=== PATIENT | female | born 1955 | race Caucasian/White ===

== ENCOUNTER 2017-01-28 12:16 | Observation (INO) | payer MEDICAID, OTHER ==
[2017-01-28 12:16] VITALS: BMI 37.5
[~2017-01-28 12:16] MED LIST: Pneumococcal 23-Valent Vaccine IM ONE
[2017-01-28] MEDS ORDERED: Sodium Chloride 0.9% 500 ML IV STA (13:10)
[2017-01-28 13:53] LABS: BASO % 0.6 % (0.0-2.0); EOS # 0.1 K/uL (0.0-0.7); EOS % 0.9 % (0.0-4.0); HEMOGLOBIN 10.8 g/dL (12.0-16.0); LYMPH # 1.8 K/uL (1.0-4.3); LYMPH % 28.8 % (20.0-40.0); MEAN CELL VOLUME 89.6 fl (81.0-99.0); MEAN CORPUSCULAR HEMOGLOBIN 29.6 pg (27.0-31.0); MEAN PLATELET VOLUME 8.8 fl (7.2-11.7); MONO # 0.4 K/uL (0.0-0.8); NEUT # 3.9 K/uL (1.8-7.0); NEUT % 63.7 % (50.0-75.0); RBC 3.64 Mil/uL (3.80-5.20); RED CELL DISTRIBUTION WIDTH 13.5 % (11.5-14.5); WHITE BLOOD COUNT 6.2 K/uL (4.8-10.8)
--- NOTE | 2017-01-28 14:19 | CT ---
PROCEDURE: CT HEAD WITHOUT CONTRAST. HISTORY: headache COMPARISON: None available. TECHNIQUE: Axial computed tomography images were obtained through the head/brain without intravenous contrast. Radiation dose: Total exam DLP = 1122.24 mGy-cm. This CT exam was performed using one or more of the following dose reduction techniques: Automated exposure control, adjustment of the mA and/or kV according to patient size, and/or use of iterative reconstruction technique. FINDINGS: HEMORRHAGE: No intracranial hemorrhage. BRAIN: No mass effect or edema. No atrophy or chronic microvascular ischemic changes. VENTRICLES: Unremarkable. No hydrocephalus. CALVARIUM: Unremarkable. PARANASAL SINUSES: Unremarkable as visualized. No significant inflammatory changes. MASTOID AIR CELLS: Unremarkable as visualized. No inflammatory changes. OTHER FINDINGS: None. IMPRESSION: Normal CT of the Head. No intracranial mass, hemorrhage or evidence of acute infarct.
[2017-01-28 14:26] LABS: ALB/GLOB RATIO 1.3 (1.0-2.1); ALT/SGPT 26 U/L (9-52); AST/SGOT 17 U/L (14-36); BLOOD UREA NITROGEN 9 mg/dl (7-17); CALCIUM 9.1 mg/dL (8.4-10.2); GFR AFRICAN-AMERICAN > 60; GFR NON-AFRICAN AMERICAN > 60
--- NOTE | 2017-01-28 14:52 | RAD ---
HISTORY: pain COMPARISON: 05/02/2015 TECHNIQUE: Chest PA and lateral FINDINGS: LUNGS: No active pulmonary disease. PLEURA: No significant pleural effusion identified. No pneumothorax apparent. CARDIOVASCULAR: No radiographic findings to suggest acute or significant cardiovascular disease. OSSEOUS STRUCTURES: No significant abnormalities. VISUALIZED UPPER ABDOMEN: Normal. OTHER FINDINGS: None. IMPRESSION: No active disease. No significant interval change compared to the prior examination(s).
--- NOTE | 2017-01-28 15:05 | CARD ---
APPROVED REPORT EKG Measurement Heart [id number] <Conclusion> Sinus bradycardia Otherwise normal ECG
--- NOTE | 2017-01-28 15:15 | ED PDOC ---
HPI: General Adult Time Seen by Provider: 01/28/17 12:51 Chief Complaint (Nursing): GI Problem Chief Complaint (Provider): Dizziness History Per: Patient History/Exam Limitations: no limitations Onset/Duration Of Symptoms: Days Additional Complaint(s): Complains of chest pain and dizziness like light-headed. Also has bubbling in her abd off and on. Dizziness ongoing for 1 week. Chest pain started today. No weakness, numbness, tingles, headaches, dyspnea, back pain. States her urine smells but no dysuria. Past Medical History Reviewed: Nursing Documentation, Vital Signs Vital Signs: Last Vital Signs Temp 98 F 01/28/17 12:24 Pulse 60 01/28/17 12:24 Resp 18 01/28/17 12:24 BP 150/94 H 01/28/17 12:24 Pulse Ox 98 01/28/17 12:24 - Medical History PMH: Anemia, Arthritis, Bipolar Disorder, COPD, Depression, Diabetes, HTN, Hypercholesterolemia, Migraine, Rheumatoid Arthritis, Schizophrenia (since 2003) , TIA Denies: Chronic Kidney Disease - Surgical History Surgical History: Denies: CABG - Family History Family History: States: Unknown Family Hx - Living Arrangements Living Arrangements: With Family - Social History Current smoker - smoking cessation education provided: No Alcohol: None Drugs: Denies - Home Medications Home Medications: Ambulatory Orders Medication Instructions Recorded Sertraline [Zoloft] 100 mg PO DAILY 12/17/13 Lisinopril [Zestril] 5 mg PO DAILY #14 tab 09/22/14 Aspirin [Ecotrin] 81 mg PO DAILY #30 tabec 05/09/15 Atorvastatin [Lipitor] 20 mg PO DAILY #30 tab 05/09/15 Benztropine [Cogentin] 2 mg PO BID #60 tab 05/09/15 QUEtiapine [SEROquel] 600 mg PO HS #30 tab 05/09/15 clonazePAM [Klonopin] 0.5 mg PO BID #60 tab 05/09/15 metFORMIN [glucOPHAGE] 500 mg PO BIDWM #60 tab 05/09/15 Cephalexin [Keflex] 500 mg PO Q6 #27 capsule 12/15/16 Clotrimazole 1% Cream [Lotrimin 1%] 1 appl TP BID #1 tube 12/15/16 - Allergies Allergies/Adverse Reactions: Allergies Allergy/AdvReac Type Severity Reaction Status Date / Time ethinyl estradiol Allergy CONGESTION Verified 12/15/16 15:25 [From Seasonale contraceptive] levonorgestrel Allergy CONGESTION Verified 12/15/16 15:25 [From Seasonale contraceptive] Review of Systems ROS Statement: Except As Marked, All Systems Reviewed And Found Negative Cardiovascular: Positive for: Chest Pain Gastrointestinal: Positive for: Abdominal Pain Neurological: Positive for: Dizziness Physical Exam - Reviewed Nursing Documentation Reviewed: Yes Vital Signs Reviewed: Yes - Physical Exam Appears: Positive for: Non-toxic, No Acute Distress Head Exam: Positive for: ATRAUMATIC, NORMAL INSPECTION, NORMOCEPHALIC Skin: Positive for: Normal Color, Warm, DRY Eye Exam: Positive for: EOMI, Normal appearance, PERRL ENT: Positive for: Normal ENT Inspection Neck: Positive for: Normal, Painless ROM Cardiovascular/Chest: Positive for: Regular Rate, Rhythm Respiratory: Positive for: CNT, Normal Breath Sounds Gastrointestinal/Abdominal: Positive for: Normal Exam, Bowel Sounds, Soft. Negative for: Tenderness Back: Positive for: Normal Inspection. Negative for: L CVA Tenderness, R CVA Tenderness Extremity: Positive for: Normal ROM. 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 Negative for: Motor/Sensory Deficits, Facial Droop - Laboratory Results Result Diagrams: 01/28/17 13:20 01/28/17 13:20 Interpretation Of Abn Labs: no acute - ECG ECG: Positive for: Interpreted By Me, Viewed By Me ECG Rhythm: Positive for: Normal QRS, Normal ST Segment, Sinus Rhythm O2 Sat by Pulse Oximetry: 98 Pulse Ox Interpretation: Normal - Radiology X-Ray: Read By Radiologist X-Ray Interpretation: No Acute Disease - Progress ED Course And Treament: 1522: Stable. AAOx3. Spoke with [facility] resident. Will admit tele obs. Pt. took ASA in the ambulance. Disposition - Clinical Impression Clinical Impression: Chest pain, Dizziness - Patient ED Disposition Is Patient to be Admitted: Yes Counseled Patient/Family Regarding: Studies Performed, Diagnosis - Disposition Disposition Time: 15:22 Condition: FAIR - Pt Status Changed To: Hospital Disposition Of: Observation - POA Present On Arrival: None
[2017-01-28] MEDS ORDERED: Morphine 4 MG/ML VIAL IV ONE (15:19)
--- NOTE | 2017-01-28 16:20 | CP.PCM.HP ---
History of Present Illness - History of Present Illness History of Present Illness: 61 year old female brought into ED by ambulance with complaint of chest pain, nausea, and one episode of vomiting which occurred this AM. Pain is sharp and pinpoint localized to the left upper chest, reproducible, and intermittent. Denies syncope, sweating, radiation of chest pain, visual changes, or diarrhea. Patient states the chest pain has been worsening over one week, she thought it was GERD but water did not alleviate her symptoms. She was able to tolerate breakfast this AM which consisted of a large can of peaches (with syrup) and a glass of iced tea (with her medications). Patient reports that she suffers from intermittent stomach cramps, constipation, and dizziness. She is a current smoker with a PMHx including NIDDM, HLD, HTN, schizoaffective disorder (bipolar type), and GERD. Patient reports that she is compliant with all her medications and follows up at [facility] for her primary care and mental health needs. Denies suicidal or homicidal ideations, denies visual hallucinations. Patient is experiencing auditory hallucinations from "Bill Karlos" which are chronic and stable. PMD: [facility] Dr. 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, current smoker with [id number] smoking history, denies alcohol and recreational drugs FmHx: Father alive, [id number], prostate cancer and HTN; mother medical history unknown, children healthy Meds: Metformin 1000mg PO BID, Lisinopril 10mg PO QD, Atorvastatin 40mg PO QD, Seroquel XR 400mg PO QHS, Topamax 25mg PO BID, Clonazepam 0.25mg PO BID, Benadryl 25mg PO Q8H prn, Benztropine mesylate 2mg PO QHS, Trileptal 150mg PO BID, Sertraline 100mg PO BID, Famotidine 20mg PO QHS Allergies: NKDA ED Course: -VSS: BP 150/94mmHg, P 60, R 18, O2Sat 98% on room air - EKG: sinus bradycardia at rate of 55 bpm, no ST-T changes - CXR: no active disease, no significant change compared to last CXR - CT head: no ICH, no mass effect or edema, no evidence of acute infarct - Labs: H/H 10.8/32.6, rest of CBC wnl, coags wnl, CMP wnl, troponin neg x 1 -UA and UCx pending - Meds: Meclizine 25mg PO once, Morphine 2mg IV once, normal saline 500mL at rate of 100mls/h Present on Admission - Present on Admission Any Indicators Present on Admission: Yes History of DVT/PE: No History of Uncontrolled Diabetes: Yes Urinary Catheter: No Decubitus Ulcer Present: No Review of Systems - Review of Systems All systems: reviewed and no additional remarkable complaints except (for what is mentioned in HPI) Past Patient History - Infectious Disease Hx of Infectious Diseases: None - Past Medical History & Family History Past Medical History?: Yes - Past Social History Alcohol: None Drugs: Denies - CARDIAC Hx Hypercholesterolemia: Yes Hx Hypertension: Yes - PULMONARY Hx Chronic Obstructive Pulmonary Disease (COPD): Yes - NEUROLOGICAL Hx Migraine: Yes Hx Transient Ischemic Attacks (TIA): Yes - HEENT Hx HEENT Problems: No - RENAL Hx Chronic Kidney Disease: No - ENDOCRINE/METABOLIC Hx Endocrine Disorders: Yes Hx Diabetes Mellitus Type 2: Yes - HEMATOLOGICAL/ONCOLOGICAL Hx Anemia: Yes - INTEGUMENTARY Hx Dermatological Problems: No - MUSCULOSKELETAL/RHEUMATOLOGICAL Hx Arthritis: Yes Hx Rheumatoid Arthritis: Yes - GASTROINTESTINAL Hx Gastrointestinal Disorders: No - GENITOURINARY/GYNECOLOGICAL Hx Genitourinary Disorders: No - PSYCHIATRIC Hx Bipolar Disorder: Yes Hx Depression: Yes Hx Schizophrenia: Yes (since 2003) - SURGICAL HISTORY Hx Coronary Artery Bypass Graft: No - ANESTHESIA Hx Malignant Hyperthermia: No Meds Allergies/Adverse Reactions: Allergies Allergy/AdvReac Type Severity Reaction Status Date / Time ethinyl estradiol Allergy CONGESTION Verified 12/15/16 15:25 [From Seasonale contraceptive] levonorgestrel Allergy CONGESTION Verified 12/15/16 15:25 [From Seasonale contraceptive] Physical Exam - Constitutional Appears: Non-toxic, No Acute Distress, Unkempt, Older Than Stated Age, Other ( anxious) - Head Exam Head Exam: ATRAUMATIC, NORMOCEPHALIC - Eye Exam Eye Exam: EOMI, PERRL - ENT Exam ENT Exam: Mucous Membranes Moist - Neck Exam Neck exam: Positive for: Full Rom. Negative for: Lymphadenopathy - Respiratory Exam Respiratory Exam: Chest Wall Tenderness (pinpoint left upper chest), Clear to Auscultation Bilateral, NORMAL BREATHING PATTERN - Cardiovascular Exam Cardiovascular Exam: REGULAR RHYTHM, +S1, +S2. absent: Gallop, Rubs - GI/Abdominal Exam GI & Abdominal Exam: Normal Bowel Sounds, Soft (very obese). absent: Distended , Tenderness - Extremities Exam Extremities exam: Positive for: full ROM (poor hygiene of feet), pedal pulses present. Negative for: calf tenderness, pedal edema, tenderness - Back Exam Back exam: absent: CVA tenderness (L), CVA tenderness (R) - Neurological Exam Neurological exam: Alert, CN II-XII Intact, Oriented x3 - Psychiatric Exam Psychiatric exam: Anxious (no homicidal or suicidal ideations, no visual hallucinations. Has stable/chronic auditory hallucinations.) - Skin Skin Exam: Dry, Intact, Normal Color, Warm Results - Vital Signs Recent Vital Signs: Last Vital Signs Temp 98 F 01/28/17 12:24 Pulse 60 01/28/17 12:24 Resp 18 01/28/17 12:24 BP 150/94 H 01/28/17 12:24 Pulse Ox 98 01/28/17 15:23 - Labs Result Diagrams: 01/28/17 13:20 01/28/17 13:20 Assessment & Plan - Assessment and Plan (Free Text) Assessment: 61 yr old F admitted for chest pain, nausea and 1 episode of vomiting. Patient is current smoker with PMHx of NIDDM, HLD, HTN, schizoaffective disorder ( bipolar type) and GERD. EKG wnl, troponin neg x 1, CXR wnl. Serial troponins are pending, UA and UCx pending. Plan: Chest Pain -acute, ACS vs costochondritis -EKG: sinus bradycardia at rate of 55bpm, otherwise normal -CXR: no active disease, unchanged compared to prior -CT Head: NO ICH, no mass effect or edema -admit to telemetry -f/u serial troponins, repeat EKG in AM, -f/u B12, folate, TSH, FT4, FT3 HTN -controlled, chronic -continue home meds (Lisinopril 10mg PO QD) NIDDM -controlled, chronic -HbA1c 6.7 (09/19/16) -continue home med (Metformin 1,000mg PO BID) -Humulin R SC ACHS-medium dose protocol -Consistent carbohydrate diet (low)/heart healthy -f/u HbA1c, lipid panel HLD -controlled, chronic -continue home meds (Atorvastatin 40mg PO QHS) Schizoaffective disorder (bipolar type) -stable, chronic (patient receives mental health tx with Brandt Sloan ) -Continue home meds: (Benztropine 2mg PO BID, Seroquel 400mg PO QHS, Clonazepam 0.25mg PO BID, Oxcarbazepine 150mg PO BID, Topiramate 25mg PO BID) GERD -stable, chronic -Famotidine 20mg PO QD DVT Prophylaxis -Lovenox 40mg SC QD -SCD's - Date & Time Date: 01/28/17 Time: 17:00
[2017-01-28 17:13] LABS: SQUAMOUS EPITHIAL < 1 /hpf (0-5); URINE BILIRUBIN NEGATIVE (NEGATIVE); URINE BLOOD NEGATIVE (NEGATIVE); URINE CLARITY CLEAR (Clear); URINE COLOR STRAW (YELLOW); URINE GLUCOSE (UA) NEG (Normal); URINE LEUKOCYTE ESTERASE LARGE Leu/uL (Negative); URINE NITRATE NEGATIVE (NEGATIVE); URINE PROTEIN NEGATIVE (NEGATIVE); URINE UROBILINOGEN 0.2-1.0 mg/dL (0.2-1.0)
[2017-01-28] MEDS ORDERED: Glucagon Recombinant 1 mg Inj IM PRN (18:14)
[2017-01-28] MEDS ORDERED: Dextrose 50% SYRINGE Inj (50 ml) IV PRN (18:14)
[2017-01-28] MEDS: Insulin Regular 100 units/ml SC SCH (22:00)
[2017-01-29] MEDS: Insulin Regular 100 units/ml SC SCH ×2 (06:36→11:30)
[2017-01-29 07:13] LABS: HEMOGLOBIN 9.7 g/dL (12.0-16.0); MEAN CELL VOLUME 88.9 fl (81.0-99.0); MEAN CORPUSCULAR HEMOGLOBIN 30.3 pg (27.0-31.0); RBC 3.21 Mil/uL (3.80-5.20); RED CELL DISTRIBUTION WIDTH 13.6 % (11.5-14.5); WHITE BLOOD COUNT 5.7 K/uL (4.8-10.8)
[2017-01-29 07:29] LABS: BLOOD UREA NITROGEN 11 mg/dl (7-17); GFR AFRICAN-AMERICAN > 60; GFR NON-AFRICAN AMERICAN > 60; HDL CHOLESTEROL 45 MG/DL (30-70)
[2017-01-29 07:42] LABS: LDL CHOLESTEROL < 30 mg/dL (0-129)
[2017-01-29] MEDS ORDERED: Dorzolamide 2% Ophth Soln OU SCH (09:00)
[2017-01-29] MEDS ORDERED: Enoxaparin 40 mg Syringe SC SCH (09:00)
[2017-01-29 12:59] VITALS: O2SAT 98
[2017-01-29 16:33] VITALS: BP 150/79; PULSE 60; RESP 18; TEMP 97.8
--- NOTE | 2017-01-29 18:37 | CP.PCM.DIS ---
Provider - Provider Date of Admission: 01/28/17 15:23 Attending physician: Kristi Durand MD Primary care physician: Adam Russell MD Consults: None Time Spent in preparation of Discharge (in minutes): 30 Hospital Course - Lab Results Lab Results: Most Recent Lab Values WBC 5.7 K/uL (4.8-10.8) 01/29/17 06:15 RBC 3.21 Mil/uL (3.80-5.20) L 01/29/17 06:15 Hgb 9.7 g/dL (12.0-16.0) L 01/29/17 06:15 Hct 28.6 % (34.0-47.0) L 01/29/17 06:15 MCV 88.9 fl (81.0-99.0) 01/29/17 06:15 MCH 30.3 pg (27.0-31.0) 01/29/17 06:15 MCHC 34.0 g/dL (33.0-37.0) 01/29/17 06:15 RDW 13.6 % (11.5-14.5) 01/29/17 06:15 Plt Count 202 K/uL (130-400) 01/29/17 06:15 MPV 8.8 fl (7.2-11.7) 01/28/17 13:20 Neut % (Auto) 63.7 % (50.0-75.0) 01/28/17 13:20 Lymph % (Auto) 28.8 % (20.0-40.0) 01/28/17 13:20 Holmes % (Auto) 6.0 % (0.0-10.0) 01/28/17 13:20 Eos % (Auto) 0.9 % (0.0-4.0) 01/28/17 13:20 Baso % (Auto) 0.6 % (0.0-2.0) 01/28/17 13:20 Neut # 3.9 K/uL (1.8-7.0) 01/28/17 13:20 Lymph # 1.8 K/uL (1.0-4.3) 01/28/17 13:20 Holmes # 0.4 K/uL (0.0-0.8) 01/28/17 13:20 Eos # 0.1 K/uL (0.0-0.7) 01/28/17 13:20 Baso # 0.0 K/uL (0.0-0.2) 01/28/17 13:20 PT 11.0 Seconds (9.8-13.1) 01/28/17 13:20 INR 1.0 (0.9-1.2) 01/28/17 13:20 APTT 29.0 Seconds (25.6-37.1) 01/28/17 13:20 Sodium 142 mmol/l (132-148) 01/29/17 06:30 Potassium 3.7 MMOL/L (3.6-5.0) 01/29/17 06:30 Chloride 108 mmol/L (98-107) H 01/29/17 06:30 Carbon Dioxide 27 mmol/L (22-30) 01/29/17 06:30 Anion Gap 11 (10-20) 01/29/17 06:30 BUN 11 mg/dl (7-17) 01/29/17 06:30 Creatinine 0.8 mg/dL (0.7-1.2) 01/29/17 06:30 Est GFR ( Amer) > 60 01/29/17 06:30 Est GFR (Non-Af Amer) > 60 01/29/17 06:30 POC Glucose (mg/dL) 109 mg/dL (65-110) 01/29/17 12:13 Random Glucose 101 mg/dL (65-105) 01/29/17 06:30 Hemoglobin A1c 6.6 % (4.2-6.5) H 01/29/17 06:15 Calcium 9.0 mg/dL (8.4-10.2) 01/29/17 06:30 Total Bilirubin 0.2 mg/dl (0.2-1.3) 01/28/17 13:20 AST 17 U/L (14-36) 01/28/17 13:20 ALT 26 U/L (9-52) 01/28/17 13:20 Alkaline Phosphatase 71 U/L (38-126) 01/28/17 13:20 Troponin I < 0.0120 ng/mL (0.00-0.120) 01/29/17 06:30 Total Protein 7.2 G/DL (6.3-8.2) 01/28/17 13:20 Albumin 4.0 g/dL (3.5-5.0) 01/28/17 13:20 Globulin 3.2 gm/dL (2.2-3.9) 01/28/17 13:20 Albumin/Globulin Ratio 1.3 (1.0-2.1) 01/28/17 13:20 Triglycerides 165 mg/DL (0-149) H 01/29/17 06:30 Cholesterol 105 mg/dL (0-199) 01/29/17 06:30 LDL Cholesterol Direct < 30 mg/dL (0-129) 01/29/17 06:30 HDL Cholesterol 45 MG/DL (30-70) 01/29/17 06:30 Vitamin B12 384 pg/mL (239-931) 01/29/17 06:30 Free T4 0.71 ng/dL (0.78-2.19) L 01/29/17 06:30 TSH 3rd Generation 5.07 mIU/ML (0.46-4.68) H 01/29/17 06:30 Urine Color Straw (YELLOW) 01/28/17 17:01 Urine Clarity Clear (Clear) 01/28/17 17:01 Urine pH 6.0 (5.0-8.0) 01/28/17 17:01 Ur Specific [place] 1.008 (1.003-1.030) 01/28/17 17:01 Urine Protein Negative mg/dL (NEGATIVE) 01/28/17 17:01 Urine Glucose (UA) Neg mg/dL (Normal) 01/28/17 17:01 Urine Ketones Negative mg/dL (NEGATIVE) 01/28/17 17:01 Urine Blood Negative (NEGATIVE) 01/28/17 17:01 Urine Nitrate Negative (NEGATIVE) 01/28/17 17:01 Urine Bilirubin Negative (NEGATIVE) 01/28/17 17:01 Urine Urobilinogen 0.2-1.0 mg/dL (0.2-1.0) 01/28/17 17:01 Ur Leukocyte Esterase Large Bong/uL (Negative) 01/28/17 17:01 Urine Microscopic WBC 10 /hpf (0-5) H 01/28/17 17:01 Ur Squamous Epith Cells < 1 /hpf (0-5) 01/28/17 17:01 Hepatitis C Antibody Negative (NEGATIVE) 01/29/17 06:30 HIV 1&2 Antibody Screen Negative (NEGATIVE) 01/29/17 06:30 - Hospital Course Hospital Course: 61 yr old F admitted for chest pain, nausea and 1 episode of vomiting. Patient is current smoker with PMHx of NIDDM, HLD, HTN, schizoaffective disorder ( bipolar type) and GERD. During her stay, EKG: sinus bradycardia at rate of 55bpm , otherwise normal, CXR: no active disease, unchanged compared to prior, CT Head : NO ICH, no mass effect or edema, Serial troponins ruled out ACS. HBA1C 6.6, TSH:5.07, T4:0.71. Pt resisted d/c demanding to see towel hemmer, Neurologist and GI. Pt was reinforced to go to scheduled clinic appointment tomorrow and f/ u with her psychiatrist. pt was d/c with Colace 100mg BID, and Seroquel 400mg PO daily and instructed to continue home meds. - Date & Time of H&P Date of H&P: 01/28/17 Time of H&P: 16:17 Discharge Exam - Head Exam Head Exam: ATRAUMATIC, NORMAL INSPECTION, NORMOCEPHALIC - Eye Exam Eye Exam: EOMI, Normal appearance - ENT Exam ENT Exam: Mucous Membranes Moist - Neck Exam Neck exam: Full Rom - Respiratory Exam Respiratory Exam: Chest Wall Tenderness (pinpoint lt upper chest), NORMAL BREATHING PATTERN. absent: Accessory Muscle Use, Decreased Breath Sounds, Wheezes, Respiratory Distress - Cardiovascular Exam Cardiovascular Exam: Bradycardia, REGULAR RHYTHM, +S1, +S2 - GI/Abdominal Exam GI & Abdominal Exam: Distended, Normal Bowel Sounds, Soft. absent: Guarding, Hernia, Mass, Rebound, Rigid, Tenderness - Extremities Exam Extremities exam: pedal pulses present Additional comments: no pitting edema - Back Exam Back exam: absent: CVA tenderness (L), CVA tenderness (R) - Neurological Exam Neurological exam: Alert, CN II-XII Intact, Oriented x3 - Psychiatric Exam Psychiatric exam: Agitated, Anxious - Skin Skin Exam: Normal Color Discharge Plan - Discharge Medications Prescriptions: Docusate [Colace] 100 mg PO BID PRN #30 PRN Reason: Constipation QUEtiapine [SEROquel] 400 mg PO HS #7 tab - Follow Up Plan Condition: FAIR Disposition: HOME/ ROUTINE Instructions: Chest Pain (DC), Dizziness (GEN) Additional Instructions: Follow up with your PCP, Dr Thornton, as outpatient. Appointment made for 01/30/17 @1 :00pm One week refill prescribed for seroquel, and told to follow up with PCP and Psychiatrist You may take colace twice daily in addition to dietary modification for constipation ER precautions given Referrals: Kayla Thornton MD [Resident] -
[2017-01-29 18:52] LABS: FOLATE 5.4 ng/mL
== END 2017-01-29 17:00 | disposition home or self-care (01) ==
LOC: H.ER 12:16 → H.ERHOLD 15:23 → H.TEL 19:00
PROVIDERS: ADMIT Family Medicine Geriatric Medicine; ATTEND Family Medicine Geriatric Medicine
DX: R07.9 Chest pain, unspecified (principal); Z79.82 Long term (current) use of aspirin; E11.9 Type 2 diabetes mellitus without complications; I10 Essential (primary) hypertension; E78.00 Pure hypercholesterolemia, unspecified; J44.9 Chronic obstructive pulmonary disease, unspecified; M06.9 Rheumatoid arthritis, unspecified; Z86.73 Personal history of transient ischemic attack (TIA), and cerebral infarction without residual deficits; D64.9 Anemia, unspecified; F32.9 Major depressive disorder, single episode, unspecified; G43.909 Migraine, unspecified, not intractable, without status migrainosus; M19.90 Unspecified osteoarthritis, unspecified site; E78.5 Hyperlipidemia, unspecified; F25.0 Schizoaffective disorder, bipolar type; K21.9 Gastro-esophageal reflux disease without esophagitis; F17.200 Nicotine dependence, unspecified, uncomplicated; K59.00 Constipation, unspecified; Z79.84 Long term (current) use of oral hypoglycemic drugs; R00.1 Bradycardia, unspecified; Z23 Encounter for immunization

== ENCOUNTER 2017-06-09 09:33 | Emergency (ER) | payer MEDICAID, OTHER ==
[2017-06-09 09:58] VITALS: BP 130/71; RESP 16; TEMP 97; O2SAT 95
--- NOTE | 2017-06-09 10:02 | ED PDOC ---
Upper Extremity Pain/Injury Time Seen by Provider: 06/09/17 09:42 Chief Complaint (Nursing): Upper Extremity Problem/Injury Chief Complaint (Provider): Left elbow and shoulder pain History Per: Patient History/Exam Limitations: no limitations Onset/Duration Of Symptoms: Days Current Symptoms Are (Timing): Still Present Additional History Per: Patient Additional Complaint(s): 61yo female with past medical history of diabetes, hypertension, psychiatric disorders, presents to ED with complaints of left elbow and shoulder pain. Patient also has a secondary complaints of cough and congestion; denies any fever or chest pain. No other complaints. Past Medical History Reviewed: Historical Data, Nursing Documentation, Vital Signs Vital Signs: Last Vital Signs Temp 97.0 F L 06/09/17 09:43 Pulse 61 06/09/17 09:43 Resp 16 06/09/17 09:43 BP 130/71 06/09/17 09:43 Pulse Ox 95 06/09/17 09:43 - Medical History PMH: Anemia, Arthritis, Bipolar Disorder, COPD, Depression, Diabetes, HTN, Hypercholesterolemia, Migraine, Rheumatoid Arthritis, Schizophrenia (since 2003) , TIA Denies: Chronic Kidney Disease - Surgical History Surgical History: Denies: CABG - Family History Family History: States: Unknown Family Hx, Hypertension - Home Medications Home Medications: Ambulatory Orders Medication Instructions Recorded Aspirin 325 mg PO BID 01/28/17 Atorvastatin [Lipitor] 40 mg PO HS 01/28/17 Clonazepam [Klonopin] 0.5 mg PO BID 01/28/17 DiphenhydrAMINE [Benadryl] 25 mg PO BID 01/28/17 Gabapentin [Neurontin] 300 mg PO BID 01/28/17 Lisinopril [Zestril] 10 mg PO DAILY 01/28/17 MetFORMIN [glucoPHAGE] 1,000 mg PO BID 01/28/17 OXcarbazepine [Trileptal] 150 mg PO BID 01/28/17 QUEtiapine [SEROquel] 400 mg PO HS #7 tab 01/29/17 Topiramate [Topamax] 25 mg PO BID tab 01/29/17 DiphenhydrAMINE [Benadryl] 50 mg PO Q4 PRN #30 cap 05/30/17 Benztropine [Cogentin] 1 mg PO DAILY 06/05/17 Sertraline [Zoloft] 100 mg PO BID 06/05/17 Cyclobenzaprine [Cyclobenzaprine 10 mg PO TID PRN #15 tab 06/06/17 HCl] Cyclobenzaprine [Cyclobenzaprine 10 mg PO Q8 #10 tab 06/09/17 HCl] traMADol [Ultram] 50 mg PO Q8 #10 tab 06/09/17 - Allergies Allergies/Adverse Reactions: Allergies Allergy/AdvReac Type Severity Reaction Status Date / Time ethinyl estradiol Allergy CONGESTION Verified 05/30/17 10:19 [From Seasonale contraceptive] levonorgestrel Allergy CONGESTION Verified 05/30/17 10:19 [From Seasonale contraceptive] Review of Systems ROS Statement: Except As Marked, All Systems Reviewed And Found Negative Constitutional: Negative for: Fever Cardiovascular: Negative for: Chest Pain Respiratory: Positive for: Cough Musculoskeletal: Positive for: Shoulder Pain (left ), Arm Pain (left elbow) Physical Exam - Reviewed Nursing Documentation Reviewed: Yes Vital Signs Reviewed: Yes - Physical Exam Appears: Positive for: Non-toxic, No Acute Distress Skin: Positive for: Normal Color Eye Exam: Positive for: Normal appearance Neck: Positive for: Supple Cardiovascular/Chest: Positive for: Regular Rate, Rhythm Respiratory: Positive for: Normal Breath Sounds. Negative for: Respiratory Distress Gastrointestinal/Abdominal: Positive for: Soft Back: Positive for: Other (tenderness to left scapula). Negative for: Vertebral Tenderness Extremity: Positive for: Normal ROM (FROM at left shoulder and elbow), Tenderness (left elbow tenderness over olecrenon). Negative for: Deformity, Swelling Neurologic/Psych: Positive for: Alert, Oriented. Negative for: Motor/Sensory Deficits - Laboratory Results Result Diagrams: 06/09/17 10:31 06/09/17 10:31 - ECG ECG: Positive for: Interpreted By Me, Viewed By Me ECG Rhythm: Positive for: Normal QRS, Sinus Rhythm. Negative for: ST/T Changes Rate: 60 O2 Sat by Pulse Oximetry: 95 Medical Decision Making Medical Decision Making: Time: 0955 Impression: left elbow and shoulder pain Plan: -- EKG -- Chest x-ray -- Labs Reassess Time: 1119 Pain in elbow and shoulder not of cardiac etiology as pain is reproducible in shoulder. Patient also has anxiety component. Patient to be discharged with instructions for outpatient follow up and prescriptions for musculoskeletal pain. Scribe Attestation: Documented by Corine Gupta acting as a scribe for Kalin Gerardo MD. Provider Attestation: All medical record entries made by the Scribe were at my direction and personally dictated by me. I have reviewed the chart and agree that the record accurately reflects my personal performance of the history, physical exam, medical decision making, and the department course for this patient. I have also personally directed, reviewed, and agree with the discharge instructions and disposition. Disposition - Clinical Impression Clinical Impression: Musculoskeletal pain - Patient ED Disposition Is Patient to be Admitted: No Counseled Patient/Family Regarding: Studies Performed, Diagnosis, Need For Followup, Rx Given - Disposition Referrals: [facility] [Outside] Disposition: Routine/Home Disposition Time: 11:19 Condition: FAIR Prescriptions: Cyclobenzaprine [Cyclobenzaprine HCl] 10 mg PO Q8 #10 tab traMADol [Ultram] 50 mg PO Q8 #10 tab Instructions: Musculoskeletal Pain (ED) Forms: [employer] (Kinyarwanda)
[2017-06-09 10:36] LABS: BASO % 0.2 % (0.0-2.0); EOS % 0.4 % (0.0-4.0); HEMATOCRIT 32.8 % (34.0-47.0); LYMPH # 1.6 K/uL (1.0-4.3); LYMPH % 26.6 % (20.0-40.0); MEAN CELL VOLUME 87.7 fl (81.0-99.0); MEAN CORPUSCULAR HGB CONC 33.1 g/dL (33.0-37.0); MEAN PLATELET VOLUME 8.9 fl (7.2-11.7); MONO # 0.4 K/uL (0.0-0.8); MONO % 6.8 % (0.0-10.0); NEUT # 3.9 K/uL (1.8-7.0); RED CELL DISTRIBUTION WIDTH 14.1 % (11.5-14.5); WHITE BLOOD COUNT 5.9 K/uL (4.8-10.8)
[2017-06-09 10:52] LABS: ALB/GLOB RATIO 1.2 (1.0-2.1); ALKALINE PHOSPHATASE 87 U/L (38-126); ALT/SGPT 24 U/L (9-52); AST/SGOT 18 U/L (14-36); BILIRUBIN,TOTAL 0.2 mg/dl (0.2-1.3); BLOOD UREA NITROGEN 14 mg/dl (7-17); CALCIUM 8.9 mg/dL (8.4-10.2); CARBON DIOXIDE 28 mmol/L (22-30); CHLORIDE 107 mmol/L (98-107); GFR AFRICAN-AMERICAN > 60; GLUCOSE,RANDOM 94 mg/dL (65-105); POTASSIUM 4.4 MMOL/L (3.6-5.0); SODIUM 144 mmol/l (132-148); TOTAL PROTEIN 7.2 G/DL (6.3-8.2)
--- NOTE | 2017-06-09 11:05 | RAD ---
HISTORY: shoulder pain COMPARISON: Comparison chest 05/30/2017 TECHNIQUE: Chest PA and lateral FINDINGS: LUNGS: No active pulmonary disease. PLEURA: No significant pleural effusion identified. No pneumothorax apparent. CARDIOVASCULAR: Normal. OSSEOUS STRUCTURES: No significant abnormalities. VISUALIZED UPPER ABDOMEN: Normal. OTHER FINDINGS: None. IMPRESSION: No acute cardiopulmonary disease.
[2017-06-09 11:21] VITALS: PULSE 60
--- NOTE | 2017-06-10 08:32 | CARD ---
APPROVED REPORT EKG Measurement Heart [id number] <Conclusion> Normal sinus rhythm Normal ECG
== END 2017-06-09 12:11 | disposition home or self-care (01) ==
LOC: H.ER 09:33
DX: M25.512 Pain in left shoulder (principal); R05 Cough; E11.9 Type 2 diabetes mellitus without complications; E78.00 Pure hypercholesterolemia, unspecified; F20.9 Schizophrenia, unspecified; F31.9 Bipolar disorder, unspecified; I10 Essential (primary) hypertension; J44.9 Chronic obstructive pulmonary disease, unspecified; M06.9 Rheumatoid arthritis, unspecified; Z79.82 Long term (current) use of aspirin; Z79.84 Long term (current) use of oral hypoglycemic drugs

== ENCOUNTER 2017-06-17 11:47 | Emergency (ER) | payer OTHER ==
[2017-06-17 11:47] VITALS: BMI 38.9
[2017-06-17 12:53] VITALS: BP 137/63; PULSE 71; RESP 20; TEMP 97; O2SAT 98
--- NOTE | 2017-06-17 14:47 | ED PDOC ---
HPI: Skin/Bite Injury Time Seen by Provider: 06/17/17 14:29 Chief Complaint (Nursing): Abnormal Skin Integrity Chief Complaint (Provider): Rash, itchy, burning History Per: Patient History/Exam Limitations: no limitations Onset/Duration Of Symptoms: Days Quality Of Symptoms: Painful Severity: Mild Pain Scale Rating Of: 3 Additional Complaint(s): Pt states she began having pain and tingling in the left upper back and arm last week and rash developed. Pt has rash on right hand, forearm and upper left back. Past Medical History Reviewed: Historical Data, Nursing Documentation, Vital Signs Vital Signs: Last Vital Signs Temp 97 F L 06/17/17 12:49 Pulse 71 06/17/17 12:49 Resp 20 06/17/17 12:49 BP 137/63 06/17/17 12:49 Pulse Ox 98 06/17/17 12:49 - Medical History PMH: Anemia, Arthritis, Bipolar Disorder, COPD, Depression, Diabetes, HTN, Hypercholesterolemia, Migraine, Rheumatoid Arthritis, Schizophrenia (since 2003) , TIA Denies: Chronic Kidney Disease - Surgical History Surgical History: No Surg Hx Denies: CABG - Family History Family History: States: Unknown Family Hx, Hypertension - Living Arrangements Living Arrangements: With Family - Social History Current smoker - smoking cessation education provided: No Alcohol: None Drugs: Denies - Home Medications Home Medications: Ambulatory Orders Medication Instructions Recorded Aspirin 325 mg PO BID 01/28/17 Atorvastatin [Lipitor] 40 mg PO HS 01/28/17 Clonazepam [Klonopin] 0.5 mg PO BID 01/28/17 DiphenhydrAMINE [Benadryl] 25 mg PO BID 01/28/17 Gabapentin [Neurontin] 300 mg PO BID 01/28/17 Lisinopril [Zestril] 10 mg PO DAILY 01/28/17 MetFORMIN [glucoPHAGE] 1,000 mg PO BID 01/28/17 OXcarbazepine [Trileptal] 150 mg PO BID 01/28/17 QUEtiapine [SEROquel] 400 mg PO HS #7 tab 01/29/17 Topiramate [Topamax] 25 mg PO BID tab 01/29/17 DiphenhydrAMINE [Benadryl] 50 mg PO Q4 PRN #30 cap 05/30/17 Benztropine [Cogentin] 1 mg PO DAILY 06/05/17 Sertraline [Zoloft] 100 mg PO BID 06/05/17 Cyclobenzaprine [Cyclobenzaprine 10 mg PO TID PRN #15 tab 06/06/17 HCl] Cyclobenzaprine [Cyclobenzaprine 10 mg PO Q8 #10 tab 06/09/17 HCl] traMADol [Ultram] 50 mg PO Q8 #10 tab 06/09/17 valACYclovir [Valtrex] 1 gm PO BID #14 tab 06/17/17 - Allergies Allergies/Adverse Reactions: Allergies Allergy/AdvReac Type Severity Reaction Status Date / Time ethinyl estradiol Allergy CONGESTION Verified 05/30/17 10:19 [From Seasonale contraceptive] levonorgestrel Allergy CONGESTION Verified 05/30/17 10:19 [From Seasonale contraceptive] Review of Systems ROS Statement: Except As Marked, All Systems Reviewed And Found Negative Constitutional: Negative for: Fever, Chills Skin: Positive for: Rash Physical Exam - Reviewed Nursing Documentation Reviewed: Yes Vital Signs Reviewed: Yes - Physical Exam Appears: Positive for: Well, Non-toxic, No Acute Distress Head Exam: Positive for: ATRAUMATIC, NORMAL INSPECTION, NORMOCEPHALIC Skin: Positive for: Warm. Negative for: Normal Color (Vesicular rash, right forearm, hand and upper left back, some areas of scabbing - C7 dermatome) Eye Exam: Positive for: Normal appearance ENT: Positive for: Normal ENT Inspection Neck: Positive for: Normal, Painless ROM Cardiovascular/Chest: Positive for: Regular Rate, Rhythm Respiratory: Positive for: CNT, Normal Breath Sounds Gastrointestinal/Abdominal: Positive for: Normal Exam, Bowel Sounds, Soft Back: Positive for: Normal Inspection Extremity: Positive for: Normal ROM Neurologic/Psych: Positive for: Alert, Oriented - ECG O2 Sat by Pulse Oximetry: 98 Disposition - Clinical Impression Clinical Impression: Shingles - Patient ED Disposition Is Patient to be Admitted: No Counseled Patient/Family Regarding: Diagnosis, Need For Followup, Rx Given - Disposition Disposition: Routine/Home Disposition Time: 14:45 Condition: GOOD Prescriptions: valACYclovir [Valtrex] 1 gm PO BID #14 tab Instructions: Reza (ED)
== END 2017-06-17 15:02 | disposition home or self-care (01) ==
LOC: H.ER 11:47
DX: B02.9 Zoster without complications (principal); E11.9 Type 2 diabetes mellitus without complications; E78.00 Pure hypercholesterolemia, unspecified; F20.9 Schizophrenia, unspecified; F31.9 Bipolar disorder, unspecified; I10 Essential (primary) hypertension; Z79.84 Long term (current) use of oral hypoglycemic drugs; Z79.82 Long term (current) use of aspirin; Z86.73 Personal history of transient ischemic attack (TIA), and cerebral infarction without residual deficits

== ENCOUNTER 2017-11-07 15:23 | Observation (INO) | payer OTHER ==
[2017-11-07 15:23] VITALS: BMI 39.8
[2017-11-07] MEDS ORDERED: DiphenhydrAMINE 50 mg/ml Inj IVP STA (15:53)
[2017-11-07] MEDS ORDERED: Sodium Chloride 0.9% 1,000 ML IV STA (15:54)
[2017-11-07] MEDS ORDERED: DiphenhydrAMINE 50 mg/ml Inj ONE (15:57)
--- NOTE | 2017-11-07 16:02 | ED PDOC ---
HPI: Allergic Reaction Time Seen by Provider: 11/07/17 15:59 Chief Complaint (Nursing): Allergic Reaction Chief Complaint (Provider): THROAT SWELLING History Per: Patient (62 Y/O FEMALE HERE FOR EVALUATION OF THROAT SWELLING NOTED AFTER INGESTING BANANA MILKSHAKE AT 10:30AM. PATIENT ATE MEAL PRIOR TO ED ARRIVAL. NOTES NASAL CONGESTION WELL. DENIES ANY OTHER SYMPTOMS. NO FEVERS/CHILLS.) Past Medical History Reviewed: Historical Data, Nursing Documentation, Vital Signs Vital Signs: Last Vital Signs Temp 98.1 F 11/07/17 15:30 Pulse 94 H 11/07/17 15:30 Resp 20 11/07/17 15:30 BP 141/69 11/07/17 15:30 Pulse Ox 99 11/07/17 15:30 - Medical History PMH: Anemia, Arthritis, Bipolar Disorder, COPD, Depression, Diabetes, HTN, Hypercholesterolemia, Migraine, Rheumatoid Arthritis, Schizophrenia (since 2003) , TIA Denies: Chronic Kidney Disease - Surgical History Surgical History: Denies: CABG - Family History Family History: States: Unknown Family Hx, Hypertension - Home Medications Home Medications: Ambulatory Orders Medication Instructions Recorded Aspirin 325 mg PO BID 01/28/17 Atorvastatin [Lipitor] 40 mg PO DAILY 01/28/17 Clonazepam [Klonopin] 0.5 mg PO Q12 01/28/17 Gabapentin [Neurontin] 300 mg PO Q8 01/28/17 Lisinopril [Zestril] 10 mg PO DAILY 01/28/17 MetFORMIN [glucoPHAGE] 1,000 mg PO BID 01/28/17 Sertraline [Zoloft] 200 mg PO QAM 06/05/17 Quetiapine Fumarate [Seroquel] 800 mg PO HS 11/07/17 traZODone [Desyrel] 100 mg PO HS 11/07/17 - Allergies Allergies/Adverse Reactions: Allergies Allergy/AdvReac Type Severity Reaction Status Date / Time banana Allergy ANAPHYLAXIS Verified 11/08/17 10:12 Review of Systems ROS Statement: Except As Marked, All Systems Reviewed And Found Negative ENT: Positive for: Throat Swelling Physical Exam - Reviewed Nursing Documentation Reviewed: Yes Vital Signs Reviewed: Yes - Physical Exam Appears: Positive for: Well, Non-toxic, No Acute Distress Head Exam: Positive for: ATRAUMATIC, NORMAL INSPECTION, NORMOCEPHALIC Skin: Positive for: Normal Color, Warm, DRY Eye Exam: Positive for: EOMI, Normal appearance, PERRL ENT: Positive for: Other (SWELLING NOTED OF UVULA AND BILATERAL PHARYNGEAL SWELLING). Negative for: Normal ENT Inspection Neck: Positive for: Normal, Painless ROM Cardiovascular/Chest: Positive for: Regular Rate, Rhythm Respiratory: Positive for: CNT, Normal Breath Sounds Gastrointestinal/Abdominal: Positive for: Normal Exam, Soft Back: Positive for: Normal Inspection Extremity: Positive for: Normal ROM Neurologic/Psych: Positive for: Alert, Oriented - Laboratory Results Result Diagrams: 11/08/17 06:15 11/08/17 06:15 - ECG O2 Sat by Pulse Oximetry: 99 - Progress ED Course And Treament: SOLUMEDROL 125 MG IV X 1 DOSE PEPCID 20 MG IV X 1 DOSE BENADRYL 50 MG IV X 1 DOSE NS 1 LITER WIDE OPEN duoneb x 1 dose for complaint of sob. Patient has persistent swelling noted in uvula/pharynx. 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
[2017-11-07 17:11] LABS: BASO % 0.3 % (0.0-2.0); EOS # 0.1 K/uL (0.0-0.7); EOS % 0.8 % (0.0-4.0); HEMOGLOBIN 10.7 g/dL (12.0-16.0); LYMPH # 1.8 K/uL (1.0-4.3); LYMPH % 22.5 % (20.0-40.0); MEAN CELL VOLUME 89.3 fl (81.0-99.0); MEAN CORPUSCULAR HEMOGLOBIN 28.8 pg (27.0-31.0); MEAN CORPUSCULAR HGB CONC 32.2 g/dL (33.0-37.0); MEAN PLATELET VOLUME 9.1 fl (7.2-11.7); MONO # 0.5 K/uL (0.0-0.8); NEUT # 5.8 K/uL (1.8-7.0); NEUT % 70.4 % (50.0-75.0); NRBC % 0.1 % (0.0-0.0); RBC 3.71 Mil/uL (3.80-5.20); WHITE BLOOD COUNT 8.2 K/uL (4.8-10.8)
[2017-11-07 17:21] LABS: BLOOD UREA NITROGEN 21 mg/dl (7-17); CALCIUM 9.6 mg/dL (8.4-10.2); GFR AFRICAN-AMERICAN > 60; GFR NON-AFRICAN AMERICAN 50
[2017-11-07] MEDS ORDERED: Albuterol 0.083% Inhal Sol (2.5 mg/3 mL) UD INH STA (17:49)
[2017-11-07] MEDS ORDERED: Oxycodone/Acetaminophen 5/325 mg Tab PO PRN (19:15)
--- NOTE | 2017-11-07 19:15 | CP.PCM.HP ---
History of Present Illness - History of Present Illness History of Present Illness: 62 yo ,f, PMhx/o HTN, DM, COPD, Anemia, Bipolar disorder, Schizophrenia presents to ED for evaluation of allergic reaction. Patient reports throat swelling started today at 10: 30 am , 5 minutes after she drunk a banana milk shake in mental Health clinic, associated with mild SOB, headache and hoarseness. Patient reports the drink had a different taste and it had maybe tiny black seeds. She took 4 tab of Advil 200 mg for headache and states that for persistent hoarseness she decided to come to ED. She denies skin rash like hives, chest pain, palpitation, lightheadedness, n,v,d,abd pain,fever, dysuria. Denies h/o food allergies , medications allergies. Denies new change of medications or a new medication regimen. On evaluation in ED patient in not respiratory distress, no hoarseness appreciated, using O2 NC sating 99 and same on room air. PMD: [facility] Dr. 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 Lungs CTA, no rhonchi, no reales. LABS: CBC 8.2>10.7<250 CMP: BUN 21 Imaging: EKG: NSR Meds SOLUMEDROL 125 MG IV X 1 DOSE PEPCID 20 MG IV X 1 DOSE BENADRYL 50 MG IV X 1 DOSE NS 1 LITER WIDE OPEN duoneb x 1 dose for complaint of sob. Present on Admission - Present on Admission Any Indicators Present on Admission: No History of DVT/PE: No History of Uncontrolled Diabetes: No Urinary Catheter: No Review of Systems - Review of Systems All systems: reviewed and no additional remarkable complaints except - EENT Nose/Mouth/Throat: Change in Voice, Hoarsness, Odynophagia, Sore Throat - Respiratory Respiratory: Dyspnea - Neurological Neurological: Headaches Past Patient History - Infectious Disease Hx of Infectious Diseases: None - Past Medical History & Family History Past Medical History?: Yes - Past Social History Smoking Status: Heavy Smoker > 10 Cigarettes Daily - CARDIAC Hx Hypercholesterolemia: Yes Hx Hypertension: Yes - PULMONARY Hx Chronic Obstructive Pulmonary Disease (COPD): Yes - NEUROLOGICAL Hx Migraine: Yes Hx Transient Ischemic Attacks (TIA): Yes - HEENT Hx HEENT Problems: No - RENAL Hx Chronic Kidney Disease: No - ENDOCRINE/METABOLIC Hx Endocrine Disorders: Yes Hx Diabetes Mellitus Type 2: Yes - HEMATOLOGICAL/ONCOLOGICAL Hx Anemia: Yes - INTEGUMENTARY Hx Dermatological Problems: No - MUSCULOSKELETAL/RHEUMATOLOGICAL Hx Arthritis: Yes Hx Rheumatoid Arthritis: Yes - GASTROINTESTINAL Hx Gastrointestinal Disorders: No - GENITOURINARY/GYNECOLOGICAL Hx Genitourinary Disorders: No - PSYCHIATRIC Hx Bipolar Disorder: Yes Hx Depression: Yes Hx Schizophrenia: Yes (since 2003) - SURGICAL HISTORY Hx Coronary Artery Bypass Graft: No - ANESTHESIA Hx Anesthesia: Yes Hx Anesthesia Reactions: No Hx Malignant Hyperthermia: No Meds Allergies/Adverse Reactions: Allergies Allergy/AdvReac Type Severity Reaction Status Date / Time No Known Allergies Allergy Verified 11/07/17 15:37 Physical Exam - Constitutional Appears: Non-toxic, No Acute Distress - Head Exam Head Exam: ATRAUMATIC, NORMOCEPHALIC - Eye Exam Eye Exam: EOMI, Normal appearance - ENT Exam ENT Exam: Mucous Membranes Moist Additional comments: mild uvula swelling and right tonsil swelling edematous, no exudates. no tongue swelling, no lips swelling - Neck Exam Neck exam: Positive for: Full Rom - Respiratory Exam Respiratory Exam: Clear to Auscultation Bilateral. absent: Rales, Rhonchi, Wheezes, Stridor - GI/Abdominal Exam GI & Abdominal Exam: Normal Bowel Sounds, Soft. absent: Guarding, Tenderness - Extremities Exam Extremities exam: Positive for: normal inspection. Negative for: pedal edema - Back Exam Back exam: NORMAL INSPECTION - Neurological Exam Neurological exam: Alert, Altered - Psychiatric Exam Psychiatric exam: Normal Affect, Normal Mood - Skin Skin Exam: Intact Results - Vital Signs Recent Vital Signs: Last Vital Signs Temp 97.5 F L 11/07/17 17:06 Pulse 86 11/07/17 16:03 Resp 20 11/07/17 15:30 BP 141/69 11/07/17 15:30 Pulse Ox 99 11/07/17 18:40 - Labs Result Diagrams: 11/07/17 16:58 11/07/17 16:58 Labs: Laboratory Results - last 24 hr 11/07/17 11/07/17 16:58 16:58 WBC 8.2 RBC 3.71 L Hgb 10.7 L Hct 33.1 L MCV 89.3 MCH 28.8 MCHC 32.2 L RDW 14.0 Plt Count 250 MPV 9.1 Neut % (Auto) 70.4 Lymph % (Auto) 22.5 Archuleta % (Auto) 6.0 Eos % (Auto) 0.8 Baso % (Auto) 0.3 Neut # (Auto) 5.8 Lymph # (Auto) 1.8 Archuleta # (Auto) 0.5 Eos # (Auto) 0.1 Baso # (Auto) 0.0 Sodium 142 Potassium 4.8 Chloride 101 Carbon Dioxide 25 Anion Gap 21 H BUN 21 H Creatinine 1.1 Est GFR ( Amer) > 60 Est GFR (Non-Af Amer) 50 Random Glucose 103 Calcium 9.6 Assessment & Plan - Assessment and Plan (Free Text) Plan: 62 yo ,f, PMhx/o HTN, DM, COPD, Anemia, Bipolar disorder, Schizophrenia admitted in observation for allergic reaction to food. Assessment /Plan 1) Allergic reaction -secondary to food allergy -first event -s/p solumedrol 125 mg IV Pepcid 20 mg iv Benadryl 50 mg NS 1l -c/w Solumedrol 40 mg IV Q12 -c/w Benadryl 25 mg PO Q6h -Pepcid 20 mg daily -Epipen 0.3 PRN if hoarseness, stridor, SOB -f/u cbc, cmp 2) HTN -controlled -c/w home medications 3) DM Hga1c 6.6 02/03/18 -continue metformin -Accucheck ACHS -SSI if hyperglycemia related to steroids. -hypoglycemia protocol 4) COPD -controlled -Duoneb PRN SOB -c/w steroids 5) Bipolar disorder -controlled -c/w home medications -Klonopin -Sertraline 6) DVT prophylaxis Lovenox 40 mg sc
[2017-11-07] MEDS ORDERED: Glucagon Recombinant 1 mg Inj IM PRN (19:23)
[2017-11-07] MEDS ORDERED: Dextrose 50% SYRINGE Inj (50 ml) IV PRN (19:23)
[2017-11-07] MEDS ORDERED: Albuterol-Ipratrop 3 mg / 0.5 (3 ml) UD INH PRN (19:28)
[2017-11-07] MEDS ORDERED: MethylPREDNISolone 40 mg Vial IVP ONE (19:45)
[2017-11-07] MEDS ORDERED: Albuterol 0.083% Inhal Sol (2.5 mg/3 mL) UD ONE (19:50)
[2017-11-07] MEDS ORDERED: methylPREDNISolone 40 MG in Sodium Chloride 0.9% 50 ML IV SCH (22:00)
[2017-11-07] MEDS: MethylPREDNISolone 40 mg Vial IVP SCH (23:04)
[2017-11-08 05:03] VITALS: RESP 18
[2017-11-08 07:08] LABS: BASO % 0.2 % (0.0-2.0); HEMOGLOBIN 10.2 g/dL (12.0-16.0); LYMPH % 9.1 % (20.0-40.0); MEAN CELL VOLUME 88.3 fl (81.0-99.0); MEAN CORPUSCULAR HEMOGLOBIN 29.2 pg (27.0-31.0); MEAN CORPUSCULAR HGB CONC 33.1 g/dL (33.0-37.0); MEAN PLATELET VOLUME 8.8 fl (7.2-11.7); MONO # 0.4 K/uL (0.0-0.8); MONO % 3.6 % (0.0-10.0); NEUT # 9.5 K/uL (1.8-7.0); NEUT % 87.1 % (50.0-75.0); PLATELET COUNT 259 K/uL (130-400); RED CELL DISTRIBUTION WIDTH 13.5 % (11.5-14.5); WHITE BLOOD COUNT 10.9 K/uL (4.8-10.8)
[2017-11-08 07:17] LABS: ALB/GLOB RATIO 1.1 (1.0-2.1); ALT/SGPT 35 U/L (9-52); AST/SGOT 23 U/L (14-36); BLOOD UREA NITROGEN 21 mg/dl (7-17); CALCIUM 9.2 mg/dL (8.4-10.2); GFR AFRICAN-AMERICAN > 60; GFR NON-AFRICAN AMERICAN > 60
[2017-11-08] MEDS ORDERED: Enoxaparin 40 mg Syringe SC SCH (09:00)
[2017-11-08 09:12] LABS: LYMPHOCYTE 10 % (20-50); MONOCYTE 3 % (0-10); NEUTROPHIL 87 % (42-75); PLATELET ESTIMATE NORMAL (NORMAL); TOTAL CELLS COUNTED 100
[2017-11-08 09:13] LABS: GIANT PLATELETS PRESENT; HYPOCHROMIC SLIGHT; LARGE PLATELETS PRESENT
[2017-11-08] MEDS: MethylPREDNISolone 40 mg Vial IVP SCH (09:39)
--- NOTE | 2017-11-08 10:23 | CP.PCM.DIS ---
Provider - Provider Date of Admission: 11/07/17 17:44 Attending physician: Bibiana Jimenez MD Time Spent in preparation of Discharge (in minutes): 30 Diagnosis - Discharge Diagnosis (1) Anaphylaxis due to food Status: Acute Hospital Course - Lab Results Lab Results: Most Recent Lab Values WBC 10.9 K/uL (4.8-10.8) H 11/08/17 06:15 RBC 3.50 Mil/uL (3.80-5.20) L 11/08/17 06:15 Hgb 10.2 g/dL (12.0-16.0) L 11/08/17 06:15 Hct 30.9 % (34.0-47.0) L 11/08/17 06:15 MCV 88.3 fl (81.0-99.0) 11/08/17 06:15 MCH 29.2 pg (27.0-31.0) 11/08/17 06:15 MCHC 33.1 g/dL (33.0-37.0) 11/08/17 06:15 RDW 13.5 % (11.5-14.5) 11/08/17 06:15 Plt Count 259 K/uL (130-400) 11/08/17 06:15 MPV 8.8 fl (7.2-11.7) 11/08/17 06:15 Neut % (Auto) 87.1 % (50.0-75.0) H 11/08/17 06:15 Lymph % (Auto) 9.1 % (20.0-40.0) L 11/08/17 06:15 Tripp % (Auto) 3.6 % (0.0-10.0) 11/08/17 06:15 Eos % (Auto) 0.0 % (0.0-4.0) 11/08/17 06:15 Baso % (Auto) 0.2 % (0.0-2.0) 11/08/17 06:15 Neut # (Auto) 9.5 K/uL (1.8-7.0) H 11/08/17 06:15 Lymph # (Auto) 1.0 K/uL (1.0-4.3) 11/08/17 06:15 Tripp # (Auto) 0.4 K/uL (0.0-0.8) 11/08/17 06:15 Eos # (Auto) 0.0 K/uL (0.0-0.7) 11/08/17 06:15 Baso # (Auto) 0.0 K/uL (0.0-0.2) 11/08/17 06:15 Neutrophils % (Manual) 87 % (42-75) H 11/08/17 06:15 Lymphocytes % (Manual) 10 % (20-50) L 11/08/17 06:15 Monocytes % (Manual) 3 % (0-10) 11/08/17 06:15 Platelet Estimate Normal (NORMAL) 11/08/17 06:15 Large Platelets Present 11/08/17 06:15 Giant Platelets Present 11/08/17 06:15 Hypochromasia (manual) Slight 11/08/17 06:15 Sodium 142 mmol/l (132-148) 11/08/17 06:15 Potassium 4.4 MMOL/L (3.6-5.0) 11/08/17 06:15 Chloride 103 mmol/L (98-107) 11/08/17 06:15 Carbon Dioxide 26 mmol/L (22-30) 11/08/17 06:15 Anion Gap 17 (10-20) 11/08/17 06:15 BUN 21 mg/dl (7-17) H 11/08/17 06:15 Creatinine 0.9 mg/dl (0.7-1.2) 11/08/17 06:15 Est GFR ( Amer) > 60 11/08/17 06:15 Est GFR (Non-Af Amer) > 60 11/08/17 06:15 POC Glucose (mg/dL) 123 mg/dL (65-110) H 11/08/17 05:27 Random Glucose 133 mg/dL (65-105) H 11/08/17 06:15 Calcium 9.2 mg/dL (8.4-10.2) 11/08/17 06:15 Total Bilirubin 0.3 mg/dl (0.2-1.3) 11/08/17 06:15 AST 23 U/L (14-36) 11/08/17 06:15 ALT 35 U/L (9-52) 11/08/17 06:15 Alkaline Phosphatase 90 U/L (38-126) 11/08/17 06:15 Total Protein 7.4 G/DL (6.3-8.2) 11/08/17 06:15 Albumin 4.0 g/dL (3.5-5.0) 11/08/17 06:15 Globulin 3.5 gm/dL (2.2-3.9) 11/08/17 06:15 Albumin/Globulin Ratio 1.1 (1.0-2.1) 11/08/17 06:15 - Hospital Course Hospital Course: 62 yo ,f, PMhx/o HTN, DM, COPD, Anemia, Bipolar disorder, Schizophrenia admitted due to an anaphylactic reaction due to food or food addative. Pt. reports shortly after drinking banana milk shake she developed difficultly breating with tongue and lip swelling. E.R. course and hospital course reviewed and givien I.V. steroids Solumedrol 125mg, I.V. Benedraly 50mg, and Pepcid 20mg IV and started on Solumedrol 40mg I.V. q12 and observed in hospital and discharge with 40mg Po steroids for 5 days and epi pen. Pt. also advised to follow up with PMD at [facility] to get allergy testing and avoid of bananas and bananas contain products. Pt. also advised to perform accuchecks with meal and advised to visit if E.R. if accuchecks greater than 400 or if symptomatic given pt. is a Diabetic with Hba1c of 6.6 on February 03 2018. Discharge Medications- Paper Script given as per. pt. preference. 1- Epi pen 2- Prednisone 40mg po x 5 days Appointment e-mail sent to Kim Alan. Discharge Exam - Head Exam Head Exam: ATRAUMATIC, NORMOCEPHALIC - Eye Exam Eye Exam: Normal appearance - ENT Exam ENT Exam: Mucous Membranes Moist - Neck Exam Neck exam: Normal Inspection - Respiratory Exam Respiratory Exam: Clear to PA & Lateral, NORMAL BREATHING PATTERN - Cardiovascular Exam Cardiovascular Exam: REGULAR RHYTHM, +S1, +S2 - GI/Abdominal Exam GI & Abdominal Exam: Soft. absent: Tenderness - Extremities Exam Extremities exam: normal capillary refill, normal inspection - Neurological Exam Neurological exam: CN II-XII Intact, Oriented x3 - Psychiatric Exam Psychiatric exam: Normal Affect, Normal Mood Discharge Plan - Follow Up Plan Condition: STABLE Disposition: HOME/ ROUTINE Patient education suggested?: Yes Referrals: [facility] [place] [Outside]
--- NOTE | 2017-11-08 11:39 | CARD ---
APPROVED REPORT EKG Measurement Heart [id number] <Conclusion> Normal sinus rhythm Normal ECG
[2017-11-08 12:49] VITALS: BP 136/79; PULSE 77; TEMP 98.1
[2017-11-10 15:55] VITALS: O2SAT 99
== END 2017-11-08 14:00 | disposition home or self-care (01) ==
LOC: H.ER 15:23 → H.ERHOLD 17:44 → H.TEL 21:30
PROVIDERS: ADMIT Family Medicine; ATTEND Family Medicine
DX: T78.00XA Anaphylactic reaction due to unspecified food, initial encounter (principal); E11.9 Type 2 diabetes mellitus without complications; Z79.82 Long term (current) use of aspirin; Z82.49 Family history of ischemic heart disease and other diseases of the circulatory system; Z86.73 Personal history of transient ischemic attack (TIA), and cerebral infarction without residual deficits; Z87.891 Personal history of nicotine dependence; F32.9 Major depressive disorder, single episode, unspecified; G43.909 Migraine, unspecified, not intractable, without status migrainosus; M19.90 Unspecified osteoarthritis, unspecified site; Z79.84 Long term (current) use of oral hypoglycemic drugs; Z79.899 Other long term (current) drug therapy; D64.9 Anemia, unspecified; E78.00 Pure hypercholesterolemia, unspecified; E78.5 Hyperlipidemia, unspecified; F25.0 Schizoaffective disorder, bipolar type; I10 Essential (primary) hypertension; J44.9 Chronic obstructive pulmonary disease, unspecified; K21.9 Gastro-esophageal reflux disease without esophagitis; M06.9 Rheumatoid arthritis, unspecified
CPT/HCPCS: 36415; 80048; 80053; 82948; 85025; 93005; 96372; 96374; 96375; 96376; 99285; G0378; J1200; J1650; J2920; J2930; J7040

== ENCOUNTER 2018-10-30 10:54 | Emergency (ER) | payer OTHER ==
[2018-10-30 11:03] VITALS: O2SAT 99
[2018-10-30 11:04] VITALS: BMI 44.1
[2018-10-30 12:54] LABS: BASO # 0.1 K/uL (0.0-0.2); BASO % 0.9 % (0.0-2.0); EOS % 0.4 % (0.0-4.0); HEMOGLOBIN 10.4 g/dL (12.0-16.0); LYMPH # 1.6 K/uL (1.0-4.3); LYMPH % 25.8 % (20.0-40.0); MEAN CELL VOLUME 87.4 fl (81.0-99.0); MEAN CORPUSCULAR HEMOGLOBIN 28.1 pg (27.0-31.0); MEAN CORPUSCULAR HGB CONC 32.2 g/dL (33.0-37.0); MEAN PLATELET VOLUME 8.7 fl (7.2-11.7); MONO # 0.3 K/uL (0.0-0.8); MONO % 5.4 % (0.0-10.0); NEUT # 4.2 K/uL (1.8-7.0); NEUT % 67.5 % (50.0-75.0); RBC 3.69 Mil/uL (3.80-5.20); RED CELL DISTRIBUTION WIDTH 14.7 % (11.5-14.5); WHITE BLOOD COUNT 6.1 K/uL (4.8-10.8)
[2018-10-30 13:08] LABS: BLOOD UREA NITROGEN 19 mg/dl (7-17); CALCIUM 9.4 mg/dL (8.4-10.2); GFR NON-AFRICAN AMERICAN > 60
[2018-10-30 13:10] LABS: BARBITURATES, UR NEGATIVE (NEGATIVE); BENZODIAZEPINES, UR NEGATIVE (NEGATIVE); OPIATES, UR NEGATIVE (NEGATIVE); PHENCYCLIDINE, UR NEGATIVE (NEGATIVE)
[2018-10-30 13:22] LABS: B-TYPE NATRIURETIC PEPTIDE 325 pg/ml (0-900)
--- NOTE | 2018-10-30 14:20 | CT ---
Date of service: 10/30/2018 PROCEDURE: CT HEAD WITHOUT CONTRAST. HISTORY: headache COMPARISON: Noncontrast head CT 05/30/2017. TECHNIQUE: Axial computed tomography images were obtained through the head/brain without intravenous contrast. Radiation dose: Total exam DLP = 892.81 mGy-cm. This CT exam was performed using one or more of the following dose reduction techniques: Automated exposure control, adjustment of the mA and/or kV according to patient size, and/or use of iterative reconstruction technique. FINDINGS: HEMORRHAGE: No intracranial hemorrhage. BRAIN: Normal perez-white matter differentiation and density are appreciated throughout the cerebrum and cerebellum with the brainstem appearing unremarkable as well. There is no mass effect. There is no suspicious extra-axial fluid collection and the midline brain anatomy appears diffusely unremarkable. VENTRICLES: Unremarkable. No hydrocephalus. CALVARIUM: Unremarkable. PARANASAL SINUSES: Unremarkable as visualized. No significant inflammatory changes. MASTOID AIR CELLS: Unremarkable as visualized. No inflammatory changes. OTHER FINDINGS: None. IMPRESSION: Unremarkable unenhanced head CT..
--- NOTE | 2018-10-30 15:05 | RAD ---
Date of service: 10/30/2018 HISTORY: intermittent dyspnea COMPARISON: 06/09/2017 TECHNIQUE: 1 view obtained. FINDINGS: LUNGS: No active pulmonary disease. PLEURA: No significant pleural effusion identified, no pneumothorax apparent. CARDIOVASCULAR: No aortic atherosclerotic calcification present. Normal cardiac size. No pulmonary vascular congestion. OSSEOUS STRUCTURES: No significant abnormalities. VISUALIZED UPPER ABDOMEN: Normal. OTHER FINDINGS: None. IMPRESSION: No active disease.
--- NOTE | 2018-10-30 15:23 | ED PDOC ---
Syncope/Near Syncope/Dizziness Time Seen by Provider: 10/30/18 11:24 Chief Complaint (Nursing): Weakness/Neurological Deficit Past Medical History Vital Signs: Last Vital Signs Temp 98 F 10/30/18 11:03 Pulse 66 10/30/18 11:03 Resp 16 10/30/18 11:03 BP 165/87 H 10/30/18 11:03 Pulse Ox 99 10/30/18 11:03 - Medical History PMH: Anemia, Arthritis, Bipolar Disorder, COPD, Depression, Diabetes, HTN, Hypercholesterolemia, Migraine, Rheumatoid Arthritis, Schizophrenia (since 2003), TIA Denies: HIV, Chronic Kidney Disease - Surgical History Surgical History: Denies: CABG - Family History Family History: States: Unknown Family Hx, Hypertension - Immunization History Hx Tetanus Toxoid Vaccination: No Hx Influenza Vaccination: No Hx Pneumococcal Vaccination: No - Home Medications Home Medications: Ambulatory Orders Medication Instructions Recorded Aspirin 325 mg PO BID 01/28/17 Atorvastatin [Lipitor] 40 mg PO DAILY 01/28/17 Clonazepam [Klonopin] 0.5 mg PO Q12 01/28/17 Gabapentin [Neurontin] 300 mg PO Q8 01/28/17 Lisinopril [Zestril] 10 mg PO DAILY 01/28/17 MetFORMIN [glucoPHAGE] 1,000 mg PO BID 01/28/17 Sertraline [Zoloft] 200 mg PO QAM 06/05/17 Quetiapine Fumarate [Seroquel] 800 mg PO HS 11/07/17 traZODone [Desyrel] 100 mg PO HS 11/07/17 - Allergies Allergies/Adverse Reactions: Allergies Allergy/AdvReac Type Severity Reaction Status Date / Time banana Allergy ANAPHYLAXIS Verified 06/08/18 07:18 - Laboratory Results Result Diagrams: 10/30/18 12:45 10/30/18 12:45 Lab Results: Troponin I < 0.0120 ng/mL (0.00-0.120) 10/30/18 12:45 NT-Pro-B Natriuret Pep 325 pg/ml (0-900) 10/30/18 12:45 - ECG O2 Sat by Pulse Oximetry: 99 Medical Decision Making Medical Decision Making: Time: 12:12 Impression: Headache, Dyspnea, Generalized weakness Differential Diagnosis: Migraines, Brain mass, Dehydration, UTI, ACS, CHF Plan: Head w/o contrast CT EKG Alcohol serum BNP BMP Drug screen Troponin I ED Urine dipstick CBC w/ differential ESR Chest portable [RAD] Reglan 10mg Toradol 30mg IV insertion 1520 Head w/o contrast CT FINDINGS: HEMORRHAGE: No intracranial hemorrhage. BRAIN: Normal perez-white matter differentiation and density are appreciated throughout the cerebrum and cerebellum with the brainstem appearing unremarkable as well. There is no mass effect. There is no suspicious extra-axial fluid collection and the midline brain anatomy appears diffusely unremarkable. VENTRICLES: Unremarkable. No hydrocephalus. CALVARIUM: Unremarkable. PARANASAL SINUSES: Unremarkable as visualized. No significant inflammatory changes. MASTOID AIR CELLS: Unremarkable as visualized. No inflammatory changes. OTHER FINDINGS: None. IMPRESSION: Unremarkable unenhanced head CT.. 1520 CXR FINDINGS: LUNGS: No active pulmonary disease. PLEURA: No significant pleural effusion identified, no pneumothorax apparent. CARDIOVASCULAR: No aortic atherosclerotic calcification present. Normal cardiac size. No pulmonary vascular congestion. OSSEOUS STRUCTURES: No significant abnormalities. VISUALIZED UPPER ABDOMEN: Normal. OTHER FINDINGS: None. IMPRESSION: No active disease Scribe Attestation: Documented by Laura Tee, acting as a scribe for Eder Gupta MD Provider Scribe Attestation: All medical record entries made by the Scribe were at my direction and personally dictated by me. I have reviewed the chart and agree that the record accurately reflects my personal performance of the history, physical exam, medical decision making, and the department course for this patient. I have also personally directed, reviewed, and agree with the discharge instructions and disposition. Disposition - Disposition Forms: [employer] (K[place])
[2018-10-30 15:42] VITALS: RESP 15
--- NOTE | 2018-10-30 15:45 | ED PDOC ---
HPI: Neurologic - General Time Seen by Provider: 10/30/18 11:24 Chief Complaint (Nursing): Weakness/Neurological Deficit Chief Complaint (Provider): Headache/Dizziness Source: patient Exam Limitations: no limitations - History of Present Illness Timing/Duration: other (2 weeks ) Associated Symptoms: weakness. denies: loss of consciousness, sleepy Allergies/Adverse Reactions: Allergies banana Allergy (Verified 06/08/18 07:18) ANAPHYLAXIS 06/08/18 - Patient denies documented allergy. Home Medications: Ambulatory Orders Aspirin 325 mg PO BID 01/28/17 Atorvastatin [Lipitor] 40 mg PO DAILY 01/28/17 Clonazepam [Klonopin] 0.5 mg PO Q12 01/28/17 Gabapentin [Neurontin] 300 mg PO Q8 01/28/17 Lisinopril [Zestril] 10 mg PO DAILY 01/28/17 MetFORMIN [glucoPHAGE] 1,000 mg PO BID 01/28/17 Sertraline [Zoloft] 200 mg PO QAM 06/05/17 Quetiapine Fumarate [Seroquel] 800 mg PO HS 11/07/17 traZODone [Desyrel] 100 mg PO HS 11/07/17 Acetaminophen/Butalbital/Caf [Fioricet] 1 tab PO TID #15 tab 10/30/18 amLODIPine [Norvasc] 5 mg PO DAILY #30 tab 10/30/18 Additional Complaint(s): 63 year old female with a history of schizophrenia, HTN and diabetes presents to the ED for an evaluation of diffused headache onset for 2 weeks and intermittent dizziness for a couple of weeks with generalized weakness. Patient also reports she hears noises in her right ear. She states a cotton was stuck in her right ear for one year and she went to her PCP who gave her drops. Otherwi se denies chest pain or syncope, shortness of breath of difficulty sleeping. PCP: clinic Past Medical History Reviewed: Historical Data, Nursing Documentation, Vital Signs Vital Signs: Last Vital Signs Temp 98 F 10/30/18 11:03 Pulse 66 10/30/18 11:03 Resp 16 10/30/18 11:03 BP 165/87 H 10/30/18 11:03 Pulse Ox 99 10/30/18 11:03 - Medical History PMH: Anemia, Arthritis, Bipolar Disorder, COPD, Depression, Diabetes, HTN, Hypercholesterolemia, Migraine, Rheumatoid Arthritis, Schizophrenia (since 2003), TIA Denies: HIV, Chronic Kidney Disease - Surgical History Surgical History: Denies: CABG - Family History Family History: States: Unknown Family Hx, Hypertension - Immunization History Hx Tetanus Toxoid Vaccination: No Hx Influenza Vaccination: No Hx Pneumococcal Vaccination: No - Home Medications Home Medications: Ambulatory Orders Medication Instructions Recorded Aspirin 325 mg PO BID 01/28/17 Atorvastatin [Lipitor] 40 mg PO DAILY 01/28/17 Clonazepam [Klonopin] 0.5 mg PO Q12 01/28/17 Gabapentin [Neurontin] 300 mg PO Q8 01/28/17 Lisinopril [Zestril] 10 mg PO DAILY 01/28/17 MetFORMIN [glucoPHAGE] 1,000 mg PO BID 01/28/17 Sertraline [Zoloft] 200 mg PO QAM 06/05/17 Quetiapine Fumarate [Seroquel] 800 mg PO HS 11/07/17 traZODone [Desyrel] 100 mg PO HS 11/07/17 Acetaminophen/Butalbital/Caf 1 tab PO TID #15 tab 10/30/18 [Fioricet] amLODIPine [Norvasc] 5 mg PO DAILY #30 tab 10/30/18 - Allergies Allergies/Adverse Reactions: Allergies Allergy/AdvReac Type Severity Reaction Status Date / Time banana Allergy ANAPHYLAXIS Verified 06/08/18 07:18 Review of Systems ROS Statement: Except As Marked, All Systems Reviewed And Found Negative Constitutional: Positive for: Weakness (generalized ) Cardiovascular: Negative for: Chest Pain Respiratory: Negative for: Shortness of Breath Neurological: Positive for: Headache, Dizziness. Negative for: Other (syncope ) Physical Exam - Reviewed Nursing Documentation Reviewed: Yes Vital Signs Reviewed: Yes - Physical Exam Appears: Positive for: Well (obese), Non-toxic, No Acute Distress Head Exam: Positive for: ATRAUMATIC, NORMAL INSPECTION, NORMOCEPHALIC Skin: Positive for: Normal Color, Warm, Dry. Negative for: Rash Eye Exam: Positive for: EOMI, Normal appearance, PERRL ENT: Positive for: Normal ENT Inspection Neck: Positive for: Normal, Painless ROM Cardiovascular/Chest: Positive for: Regular Rate, Rhythm. Negative for: Murmur Respiratory: Positive for: Normal Breath Sounds. Negative for: Respiratory Distress Gastrointestinal/Abdominal: Positive for: Normal Exam, Soft. Negative for: Tenderness Back: Positive for: Normal Inspection Extremity: Positive for: Normal ROM. 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 Negative for: Mood/Affect, Lethargic, Listless, Motor/Sensory Deficits, Facial Droop - Laboratory Results Result Diagrams: 10/30/18 12:45 10/30/18 12:45 Lab Results: Troponin I < 0.0120 ng/mL (0.00-0.120) 10/30/18 12:45 NT-Pro-B Natriuret Pep 325 pg/ml (0-900) 10/30/18 12:45 - ECG O2 Sat by Pulse Oximetry: 99 (RA) Pulse Ox Interpretation: Normal - Progress Re-evaluation Time: 16:38 Condition: Re-examined, Improved Medical Decision Making Medical Decision Making: Time: 12:12 Impression: Headache, Dyspnea, Generalized weakness Differential Diagnosis: Migraines, Brain mass, Dehydration, UTI, ACS, CHF Plan: Head w/o contrast CT EKG Alcohol serum BNP BMP Drug screen Troponin I ED Urine dipstick CBC w/ differential ESR Chest portable [RAD] Reglan 10mg Toradol 30mg IV insertion 14:17 Head w/o contrast CT FINDINGS: HEMORRHAGE: No intracranial hemorrhage. BRAIN: Normal perez-white matter differentiation and density are appreciated throughout the cerebrum and cerebellum with the brainstem appearing unremarkable as well. There is no mass effect. There is no suspicious extra-axial fluid collection and the midline brain anatomy appears diffusely unremarkable. VENTRICLES: Unremarkable. No hydrocephalus. CALVARIUM: Unremarkable. PARANASAL SINUSES: Unremarkable as visualized. No significant inflammatory changes. MASTOID AIR CELLS: Unremarkable as visualized. No inflammatory changes. OTHER FINDINGS: None. IMPRESSION: Unremarkable unenhanced head CT.. 15:02 CXR FINDINGS: LUNGS: No active pulmonary disease. PLEURA: No significant pleural effusion identified, no pneumothorax apparent. CARDIOVASCULAR: No aortic atherosclerotic calcification present. Normal cardiac size. No pulmonary vascular congestion. OSSEOUS STRUCTURES: No significant abnormalities. VISUALIZED UPPER ABDOMEN: Normal. OTHER FINDINGS: None. IMPRESSION: No active disease Scribe Attestation: Documented by Laura Tee, acting as a scribe for Eder Gupta MD Provider Scribe Attestation: All medical record entries made by the Scribe were at my direction and personally dictated by me. I have reviewed the chart and agree that the record accurately reflects my personal performance of the history, physical exam, medical decision making, and the department course for this patient. I have also personally directed, reviewed, and agree with the discharge instructions and disposition. Disposition - Clinical Impression Clinical Impression: Headache, Dizziness, Hypertension - Patient ED Disposition Is Patient to be Admitted: No Doctor Will See Patient In The: Office Counseled Patient/Family Regarding: Studies Performed, Diagnosis, Need For Followup - Disposition Referrals: Belle Flores MD [Medical Doctor] - Disposition: Routine/Home Disposition Time: 16:40 Condition: GOOD Additional Instructions: FAROOQ ELLIOTT, thank you for letting us take care of you today. Your provider was Eder Gupta MD and you were treated for WEAKNESS. The emergency medical care you received today was directed at your acute symptoms. If you were prescribed any medication, please fill it and take as directed. It may take several days for your symptoms to resolve. Return to the Emergency Department if your symptoms worsen, do not improve, or if you have any other problems. Please contact your doctor or call one of the physicians/clinics you have been referred to that are listed on the Patient Visit Information form that is included in your discharge packet. Bring any paperwork you were given at discharge with you along with any medications you are taking to your follow up visit. Our treatment cannot replace ongoing medical care by a primary care provider outside of the emergency department. Thank you for allowing the [facility] team to be part of your care today. If you had an X-Ray or CT scan: A Radiologist will review the ED reading if any change in treatment is needed we will contact you. Prescriptions: Acetaminophen/Butalbital/Caf [Fioricet] 1 tab PO TID #15 tab amLODIPine [Norvasc] 5 mg PO DAILY #30 tab Instructions: Headache, Adult, High Blood Pressure (DC) Print Language: SLOVAK
[2018-10-30 18:50] VITALS: BP 130/70; PULSE 76; TEMP 98.1
--- NOTE | 2018-10-30 22:28 | CARD ---
APPROVED REPORT Date of service: 10/30/2018 EKG Measurement Heart [id number] <Conclusion> Normal sinus rhythm Normal ECG
== END 2018-10-30 16:55 | disposition home or self-care (01) ==
LOC: H.ER 10:54
DX: R51 Headache (principal); R42 Dizziness and giddiness; I10 Essential (primary) hypertension; E11.9 Type 2 diabetes mellitus without complications; Z79.84 Long term (current) use of oral hypoglycemic drugs; Z86.59 Personal history of other mental and behavioral disorders; J44.9 Chronic obstructive pulmonary disease, unspecified; Z86.73 Personal history of transient ischemic attack (TIA), and cerebral infarction without residual deficits
CPT/HCPCS: 70450; 71045; 80048; 80320; 80324; 80345; 80346; 80349; 80353; 80358; 80361; 83880; 83992; 84484; 85025; 85651; 93005; 96374; 99284; J1885